=== PATIENT | female | born 1980 | race Caucasian/White ===

== ENCOUNTER 2022-05-30 06:33 | Day surgery (SDC) | payer MEDICAID ==
[~2022-05-30] VITALS: Ht 157.5 cm; Wt 77.3 kg
[2022-05-30 06:40] VITALS: BP 142/89
[2022-05-30] MEDS ORDERED: MIDAZolam 1 MG/ML 5ML VIAL ONE (06:45)
[2022-05-30] MEDS ORDERED: LIDOcaine Viscous 15ml cup ONE (06:45)
[2022-05-30] MEDS ORDERED: fentaNYL/PF 50MCG/1 ML 2ML syringe ONE (06:45)
[2022-05-30] MEDS ORDERED: VENL75CA61 PO (07:05)
[2022-05-30] MEDS ORDERED: MESA400C4 PO (07:05)
[2022-05-30] MEDS ORDERED: CLON0.1T2 PO (07:05)
[2022-05-30] MEDS ORDERED: OMEP20CA16 PO (07:05)
[2022-05-30 07:51] VITALS: BP 148/86
[2022-05-30 08:01] VITALS: BP 153/80
[2022-05-30 08:11] VITALS: BP 145/94
[2022-05-30 08:21] VITALS: BP 138/86
== END 2022-05-30 08:31 | disposition home or self-care (01) ==
LOC: GI LAB 06:33
PROVIDERS: ATTEND Surgery
DX: K44.9 Diaphragmatic hernia without obstruction or gangrene (principal)
CPT/HCPCS: 43239; 99152; J2250; J3010; J7030; Z7512; 99153; A4620

== ENCOUNTER 2022-06-04 10:13 | Inpatient (IN) | payer MEDICAID ==
[2022-06-04] VITALS (15 sets, daily range): BP systolic 96–133; BP diastolic 53–78
[~2022-06-04] VITALS: Ht 157.5 cm; Wt 76.9 kg
[~2022-06-04 10:13] MED LIST: CLON0.1T2 PO; MESA400C4 PO; OMEP20CA16 PO; VENL75CA61 PO; clindamycin-Cleocin 900mg/D5W 50 ML IV ONE; famotidine 20mg tablet PO ONE; ringers solution, lacted 1,000 ML IV SCH
--- NOTE | 2022-06-04 12:00 | NUR ---
PATIENT PREPARED FOR SURGERY, IV STARTED IN LEFT HAND WITHOUT DIFFICULTY, UNABLE TO DRAW BLOOD FOR LAB WORK. LAB CALLED TO [facility]. PHARMACY CALLED TO VERIFY ANTIBIOTIC ORDER. IT WAS OKED TO GIVE TO GIVE CLEOCIN WITH THE E-MYCIN ALLERGY.. PT'S MOTHER AT BEDSIDE, SHE WILL TAKE PATIENTS PURSE WITH HER. CLOTHES AND PATIENTS PHONE REMAIN IN BELONGINGS BAGS WHICH WERE TAKEN TO RECOVERY ROOM.
[2022-06-04 12:39] LABS: BASOPHILS # (AUTO) 0.1 X10'3 (0-0.2); BASOPHILS % (AUTO) 1.2 % (0-1); EOSINOPHILS # (AUTO) 0.1 X10'3 (0-0.9); EOSINOPHILS % (AUTO) 1.2 % (0-6); HEMATOCRIT 43.9 % (35.0-45.0); HEMOGLOBIN 14.5 g/dl (12.0-16.0); LYMPHOCYTES # (AUTO) 2.6 X10'3 (1.1-4.8); LYMPHOCYTES % (AUTO) 28.1 % (21-51); MEAN CORPUSCULAR HEMOGLOBIN 31.4 PG (27.0-31.0); MEAN CORPUSCULAR VOLUME 95.4 FL (78-98); MEAN PLATELET VOLUME 8.4 FL (7.4-10.4); MONOCYTES # (AUTO) 0.7 X10'3 (0-0.9); MONOCYTES % (AUTO) 7.2 % (2-12); NEUTROPHILS # (AUTO) 5.8 X10'3 (1.8-7.7); NEUTROPHILS % (AUTO) 62.3 % (42-75); PLATELET COUNT 247 X10'3 (140-440); RED CELL DISTRIBUTION WIDTH 17.4 % (11.5-14.5); WHITE BLOOD COUNT 9.3 X10'3 (4.5-11.0)
[2022-06-04] MEDS ORDERED: morphine 2 MG/ML inj. syringe IV PRN (12:55)
[2022-06-04] MEDS ORDERED: morphine 4 MG/ML inj SYRINge IV PRN (12:55)
[2022-06-04] MEDS ORDERED: meperidine/PF 25mg/ml syringe IV PRN ×3 (12:55)
[2022-06-04] MEDS ORDERED: ondansetron/PF 4mg/2ml inj IV PRN (12:55)
[2022-06-04] MEDS ORDERED: ringers solution, lacted 1,000 ML IV SCH (12:55)
[2022-06-04] MEDS ORDERED: proCHLORperazine 10 MG/2 ml inj IV PRN (12:55)
[2022-06-04 12:59] LABS: ALANINE AMINOTRANSFERASE 41 U/L (12-78); ALBUMIN 3.5 G/DL (3.4-5.0); ALKALINE PHOSPHATASE 71 IU/L (46-116); ANION GAP 10 (8-16); ASPARTATE AMINO TRANSFERASE 36 U/L (10-37); BILIRUBIN,TOTAL 0.4 MG/DL (0.1-1.0); BLOOD UREA NITROGEN 9 MG/DL (7-18); BUN/CREATININE RATIO 15.3 (6.6-38.0); CALCIUM 9.5 MG/DL (8.5-10.1); CHLORIDE 100 MMOL/L (99-107); CREATININE 0.59 MG/DL (0.40-0.90); GLUCOSE 88 MG/DL (70-104); POTASSIUM 4.2 MMOL/L (3.5-5.1); SODIUM 135 MMOL/L (135-145); TOTAL CARBON DIOXIDE 25.5 MMOL/L (24-32); TOTAL PROTEIN 7.1 G/DL (6.4-8.2); eGFR > 90 ML/MIN
[2022-06-04] MEDS ORDERED: diazepam 5mg tablet PO ONE (14:15)
[2022-06-04] MEDS ORDERED: LIDOcaine 1% 30ml preserv. free vial ONE (15:24)
[2022-06-04] MEDS ORDERED: BUPIVAcaine/PF 2.5mg/ml (0.25%) 10ml vial ONE (15:25)
[2022-06-04] MEDS ORDERED: midazolam 1 mg/ML 2ml injection ONE (15:41)
[2022-06-04] MEDS ORDERED: rocuronium 10mg/ml inj IV ONE ×2 (15:42→16:33)
[2022-06-04] MEDS ORDERED: fentaNYL /PF 50mcg/ml 5ml ampule ONE (15:42)
[2022-06-04] MEDS ORDERED: LIDOcaine 1%/PF 5ML 10 MG/ML VIAL ONE (15:42)
[2022-06-04] MEDS ORDERED: propofol inj 20 ML IV ONE (15:42)
[2022-06-04] MEDS ORDERED: naloxone 0.4 mg/ml inj IV PRN (18:05)
[2022-06-04] MEDS ORDERED: normal saline 1000ml 1,000 ML IV SCH (18:05)
[2022-06-04] MEDS: potassium CL 20mEq in D5-1/2NS 1,000 ML IV SCH (18:15)
[2022-06-04] MEDS ORDERED: meperidine/PF 25mg/ml syringe ONE (18:17)
[2022-06-04] MEDS ORDERED: glycopyrrolate 0.2mg/ml inj ONE (18:18)
[2022-06-04] MEDS ORDERED: neostigmine methylsulfate 1 MG/ML 10ml vial ONE (18:18)
[2022-06-04] MEDS ORDERED: ketorolac trometh. 30mg/ml inj. ONE (18:18)
[2022-06-04] MEDS ORDERED: ondansetron/PF 4mg/2ml inj ONE (18:18)
[2022-06-04] MEDS ORDERED: cloNIDine 0.1 mg tablet PO PRN (18:20)
[2022-06-04] MEDS ORDERED: acetaminophen 1,000mg/100ml IV 100 ML IV ONE (18:21)
--- NOTE | 2022-06-04 18:26 | NUR ---
Received from OR via , accompanied by Anesthesiologist TRIP and OR NURSE. report given by Anesthesiolgist. PT IS ALERT/DROWSY AND FOLLOWING COMMANDS. PAIN AT A 7 TO CHEST/SHOULDER AREA; STAFF EXPLAINS IT IS DUE TO PROCEDURE. PT ON NC AT 3LPM. 4 LAP SITES WITH DERMABOND;CDI. VSS Addendum: 06/04/22 at 1849 by Kajal Dolan RN Amended: Links added.
[2022-06-04] MEDS: HYDROmorph/NS 0.2 mg/ml PCA 100 ML IV SCH ×4 (19:00→23:00)
--- NOTE | 2022-06-04 19:16 | NUR ---
Report called to receiving nurse. Transferred via bed with one bag of Belongings CAD PUMP WITH DILAUDID INTIATED BY SPINNING MACHINE TENDER WITH 10 MINUTE LOCKOUT AND 0.2 ML OF DILAUDID AVAILABLE EVERY 10 MINUTES; PT RECEIVED ONE IN UNIT. 3LPM OF . CHACE PATENT. 20G IN RT HAND INFUSING. VSS. Special Issues communicated to receiving nurse. Addendum: 06/04/22 at 1932 by Kajal Dolan RN Amended: Links added.
[2022-06-04] MEDS: docusate sod 100mg capsule PO SCH (20:00)
[2022-06-04] MEDS: ondansetron/PF 4mg/2ml inj IV PRN (20:02)
[2022-06-05] MEDS: HYDROmorph/NS 0.2 mg/ml PCA 100 ML IV SCH ×5 (01:00→09:00)
[2022-06-05 02:00] VITALS: BP 98/49
[2022-06-05] MEDS: ondansetron/PF 4mg/2ml inj IV PRN (02:43)
[2022-06-05] MEDS: potassium CL 20mEq in D5-1/2NS 1,000 ML IV SCH ×2 (04:15→09:14)
[2022-06-05 06:00] VITALS: BP 109/68
--- NOTE | 2022-06-05 06:18 | NUR ---
Patient in room [facility]. I have received report from manuel serrano and had the opportunity to ask questions and assume patient care.
[2022-06-05 07:15] LABS: BASOPHILS % (AUTO) 0.2 % (0-1); EOSINOPHILS % (AUTO) 0.1 % (0-6); HEMOGLOBIN 12.7 g/dl (12.0-16.0); LYMPHOCYTES % (AUTO) 6.3 % (21-51); MEAN CORPUSCULAR HEMOGLOBIN 32.1 PG (27.0-31.0); MEAN CORPUSCULAR HGB CONC 33.3 g/dL (33.0-36.5); MEAN CORPUSCULAR VOLUME 96.2 FL (78-98); MEAN PLATELET VOLUME 8.9 FL (7.4-10.4); MONOCYTES # (AUTO) 0.9 X10'3 (0-0.9); MONOCYTES % (AUTO) 5.7 % (2-12); NEUTROPHILS # (AUTO) 13.2 X10'3 (1.8-7.7); NEUTROPHILS % (AUTO) 87.7 % (42-75); PLATELET COUNT 237 X10'3 (140-440); RED BLOOD COUNT 3.95 X10'6 (4.20-5.60); RED CELL DISTRIBUTION WIDTH 16.7 % (11.5-14.5); WHITE BLOOD COUNT 15.1 X10'3 (4.5-11.0)
[2022-06-05] MEDS: docusate sod 100mg capsule PO SCH (07:44)
[2022-06-05 07:48] LABS: ALBUMIN 3.1 G/DL (3.4-5.0); ANION GAP 8 (8-16); BLOOD UREA NITROGEN 14 MG/DL (7-18); BUN/CREATININE RATIO 15.6 (6.6-38.0); CALCIUM 8.6 MG/DL (8.5-10.1); CHLORIDE 100 MMOL/L (99-107); GLUCOSE 118 MG/DL (70-104); POTASSIUM 5.3 MMOL/L (3.5-5.1); SODIUM 132 MMOL/L (135-145); TOTAL CARBON DIOXIDE 23.8 MMOL/L (24-32); eGFR 69 ML/MIN
[2022-06-05] MEDS ORDERED: mesalamine 400mg delayed-release capsule PO SCH (08:00)
[2022-06-05] MEDS ORDERED: venlafaxine XR 75mg capsule (Q24H) PO SCH (08:00)
--- NOTE | 2022-06-05 08:04 | NUR ---
Harrison Consult: Pt s/p harrison fundoplication this admit per EMR. Provided pt w/ written and verbal post-harrison diet education w/ RD contact info. Addendum: 06/05/22 at [address] Amended: Links added.
[2022-06-05] MEDS ORDERED: normal saline 1000ml 1,000 ML IV SCH (09:40)
[2022-06-05] MEDS ORDERED: oxyCODONE/APAP 5-325mg tablet PO PRN (09:40)
[2022-06-05 10:00] VITALS: BP 121/66
[2022-06-05] MEDS ORDERED: PCA WASTE DOCUMENTATION MC PRN (10:03)
--- NOTE | 2022-06-05 11:00 | NUR ---
WASTED PTS DILAUDID COREY, I GOT 54 ML OF WASTE PER MACHINE IT SHOULD HAVE BEEN 55 ML BUT UNABLE TO WASTE FROM THE LINE. CHARGE NURSE IS AWARE
[2022-06-05] MEDS ORDERED: PER5325T PO (13:50)
[2022-06-05] MEDS ORDERED: oxyCODONE/APAP 5-325mg tablet PO ONE (14:15)
--- NOTE | 2022-06-05 14:31 | NUR ---
per dr gr, he sent the pts prescriptions to [facility] in [place]
--- NOTE | 2022-06-05 14:49 | NUR ---
pt is stable for discharge, iv is dc and cannula is intact, all belongings taken, all discharge info went over, pt was walked down to the elevator and left with family in private vehicle.
== END 2022-06-05 14:45 | disposition home or self-care (01) | DRG 220 ==
LOC: UNDOADMIN 10:13 → PAS IN 10:13 → SUR 3N 19:26 → PAS IN 19:26
PROVIDERS: ADMIT Surgery; ATTEND Surgery
PROC: 8E0W4CZ Robotic Assisted Procedure of Trunk Region, Percutaneous Endoscopic Approach (ICD-10-PCS; 2022-06-04)
PROC: 0DV44ZZ Restriction of Esophagogastric Junction, Percutaneous Endoscopic Approach (ICD-10-PCS; 2022-06-04)
PROC: 0BUT4JZ Supplement Diaphragm with Synthetic Substitute, Percutaneous Endoscopic Approach (ICD-10-PCS; principal; 2022-06-04 15:32)
DX: K44.9 Diaphragmatic hernia without obstruction or gangrene (principal); F32.A Depression, unspecified; F41.9 Anxiety disorder, unspecified; Z88.0 Allergy status to penicillin; Z88.2 Allergy status to sulfonamides; Z79.899 Other long term (current) drug therapy
CPT/HCPCS: 36415; 71045; 80048; 80053; 82948; 85025; A4615; A4618; A7000; C1758; C1781; G0378; J0131; J1170; J1885; J2175; J2250; J2270; J2405; J2704; J2710; J3010; J3480; J3490; J7030; J7120